=== PATIENT | male | born 1950 | race Caucasian/White ===

== ENCOUNTER → 2021-03-11 | Outpatient (CLI) | payer BC ==
[2014-10-05 12:45] VITALS: BP 112/78
[~2021-03-11] MED LIST: ASPI325T8 PO; MULT-445 PO
--- NOTE | 2021-03-11 13:51 | CARD ---
MR#: [id number] Date of Study: 03/11/2021 Ordering Physician: ANURAG KERNS, Referring Physician: ANURAG KERNS, Tech: Alyssa Diane, [facility] APPROVED REPORT EXAM: Two-dimensional and M-mode echocardiogram with Doppler and color Doppler. Other Information Quality : AverageHR: 77bpm Technically limited study due to body habitus. INDICATION Dyspnea RISK FACTORS Previous smoker 2D DIMENSIONS Left Atrium(2D)3.8 (1.6-4.0cm)IVSd1.3 (0.7-1.1cm) Aortic Root(2D)3.3 (2.0-3.7cm)LVDd4.9 (3.9-5.9cm) LVOT Diameter2.1 (1.8-2.4cm)PWd1.1 (0.7-1.1cm) LVDs3.2 (2.5-4.0cm)FS (%) 34.1 % SV70.4 mlLVEF(%)62.9 (>50%) Aortic Valve AoV Peak Darin.178.2cm/sAoV VTI26.9cm AO Peak GR.12.7mmHgLVOT Peak Darin.111.5cm/s LVOT VTI 22.50cmAO Mean GR.6mmHg JASWINDER (VMAX)1.31ty5CPC (VTI)2.83cm2 Mitral Valve MV E Tuomaczq63.3cm/sMV DECEL SYTQ532tq MV A Icsctudt97.4cm/sMV E Mean Gr.2mmHg MV HVB13jvU/A Ratio0.6 MVA (PHT)3.05cm2 TDI E/Lateral E'4.6E/Medial E'5.3 Pulmonary Valve PV Peak Rjzyuvwx90.2cm/sPV Peak Grad.3mmHg Tricuspid Valve TR P. Xbxuvusi187sw/sRAP [id number] TR Peak Gr.39pqFrDVXM67clUr Pulmonary Vein S1 Favzcoav96.5cm/sD2 Bhohuses35.4cm/s PVa [id number] LEFT VENTRICLE The left ventricle is normal size. There is mild to moderate concentric left ventricular hypertrophy. The left ventricular systolic function is normal and the ejection fraction is within normal range. T he Ejection Fraction is 55-60%. Septal motion consistent with conduction abnormality. Otherwise, piyush sly normal wall motion. Transmitral Doppler flow pattern is Grade I-abnormal relaxation pattern. RIGHT VENTRICLE The right ventricle is borderline dilated. There is normal right ventricular wall thickness. The righ t ventricular systolic function is normal. ATRIA The left atrium size is normal. The right atrium is borderline dilated. Interatrial septum not well v isualized. AORTIC VALVE The aortic valve is normal in structure and function. Doppler and Color Flow revealed no significant aortic regurgitation. There is no significant aortic valvular stenosis. Calculated aortic valve area is 2.70 cm2 with maximum pressure gradient of 15 mmHg and mean pressure gradient of 8 mmHg. MITRAL VALVE The mitral valve is normal in structure and function. There is no evidence of mitral valve prolapse. There is no mitral valve stenosis. Doppler and Color Flow revealed no mitral valve regurgitation note d. TRICUSPID VALVE The tricuspid valve is normal in structure and function. Doppler and Color Flow revealed trace tricus pid regurgitation with an estimated PAP of 32 mmHg. There is no tricuspid valve stenosis. PULMONIC VALVE The pulmonic valve is not well visualized. Doppler and Color Flow revealed trace pulmonic valvular re gurgitation. There is no pulmonic valvular stenosis. GREAT VESSELS The aortic root is normal in size. The ascending aorta is mildly dilated measuring 4.13 cm. The IVC i s normal in size and collapses >50% with inspiration. PERICARDIAL EFFUSION There is no evidence of significant pericardial effusion. Critical Notification Critical Value: No <Conclusion> The left ventricular systolic function is normal and the ejection fraction is within normal range. Th e Ejection Fraction is 55-60%. Septal motion consistent with conduction abnormality. Otherwise, grossly normal wall motion. The ascending aorta is mildly dilated measuring 4.13 cm. Signed by : Baldemar Bradshaw, Electronically Approved : 03/11/2021 13:51:04
== END ==
LOC: ECHO 07:39
PROVIDERS: ATTEND Internal Medicine Cardiovascular Disease
DX: I51.7 Cardiomegaly (principal); R06.00 Dyspnea, unspecified; R01.1 Cardiac murmur, unspecified
CPT/HCPCS: 93306